=== PATIENT | female | born 1960 | race Caucasian/White ===

== ENCOUNTER 2023-07-05 07:11 | Observation (INO) | payer MEDICARE, MEDICAID ==
[2023-06-09 14:06] LABS: BASOPHILS % (AUTO) 0.5 % (0-1); EOSINOPHILS # (AUTO) 0.1 X10'3 (0-0.9); EOSINOPHILS % (AUTO) 1.3 % (0-6); LYMPHOCYTES # (AUTO) 1.4 X10'3 (1.1-4.8); LYMPHOCYTES % (AUTO) 26.5 % (21-51); MEAN CORPUSCULAR HEMOGLOBIN 29.4 PG (27.0-31.0); MEAN CORPUSCULAR HGB CONC 33.6 g/dL (33.0-36.5); MEAN CORPUSCULAR VOLUME 87.6 FL (78-98); MEAN PLATELET VOLUME 7.9 FL (7.4-10.4); MONOCYTES # (AUTO) 0.7 X10'3 (0-0.9); MONOCYTES % (AUTO) 12.9 % (2-12); NEUTROPHILS # (AUTO) 3.1 X10'3 (1.8-7.7); NEUTROPHILS % (AUTO) 58.8 % (42-75); PRE OP HEMATOCRIT 41.2 % (35.0-45.0); PRE OP HEMOGLOBIN 13.8 g/dL (12.0-16.0); PRE OP PLATELET COUNT 311 X10'3 (140-440); PRE OP WHITE BLOOD COUNT 5.2 10'3 (4.8-10.8)
[2023-06-09 14:14] LABS: ALBUMIN 4.1 G/DL (3.4-5.0); ALBUMIN/GLOBULIN RATIO 1.1 (1.1-1.5); ALKALINE PHOSPHATASE 24 IU/L (46-116); BLOOD UREA NITROGEN 19 MG/DL (7-18); BUN/CREATININE RATIO 13.7 (10.0-20.0); CALCIUM 9.5 MG/DL (8.5-10.1); CHLORIDE 106 MMOL/L (99-107); CREATININE 1.39 MG/DL (0.40-0.90); PRE OP ALT 30 U/L (30-65); PRE OP ANION GAP 9 (8-16); PRE OP AST 20 U/L (10-37); PRE OP BILIRUB, TOTAL 0.6 MG/DL (0.0-1.0); PRE OP GLUCOSE 97 MG/DL (70-104); PRE OP POTASSIUM 3.9 MMOL/L (3.4-5.1); PRE OP SODIUM 141 MMOL/L (135-145); TOTAL CARBON DIOXIDE 26.4 MMOL/L (24-32); TOTAL PROTEIN 7.8 G/DL (6.4-8.2); eGFR 38 ML/MIN
[2023-06-30 14:50] LABS: BASOPHILS % (AUTO) 0.4 % (0-1); EOSINOPHILS # (AUTO) 0.1 X10'3 (0-0.9); EOSINOPHILS % (AUTO) 0.9 % (0-6); LYMPHOCYTES # (AUTO) 1.1 X10'3 (1.1-4.8); LYMPHOCYTES % (AUTO) 16.6 % (21-51); MEAN CORPUSCULAR HGB CONC 34.5 g/dL (33.0-36.5); MEAN PLATELET VOLUME 7.7 FL (7.4-10.4); MONOCYTES # (AUTO) 0.6 X10'3 (0-0.9); MONOCYTES % (AUTO) 8.8 % (2-12); NEUTROPHILS # (AUTO) 4.8 X10'3 (1.8-7.7); NEUTROPHILS % (AUTO) 73.3 % (42-75); PRE OP HEMATOCRIT 40.9 % (35.0-45.0); PRE OP HEMOGLOBIN 14.1 g/dL (12.0-16.0); PRE OP PLATELET COUNT 344 X10'3 (140-440); PRE OP WHITE BLOOD COUNT 6.6 10'3 (4.8-10.8); RED CELL DISTRIBUTION WIDTH 14.1 % (11.5-14.5)
[2023-06-30 15:01] LABS: ALBUMIN/GLOBULIN RATIO 1.1 (1.1-1.5); ALKALINE PHOSPHATASE 26 IU/L (46-116); BLOOD UREA NITROGEN 21 MG/DL (7-18); BUN/CREATININE RATIO 15.9 (10.0-20.0); CALCIUM 9.4 MG/DL (8.5-10.1); CHLORIDE 103 MMOL/L (99-107); CREATININE 1.32 MG/DL (0.40-0.90); PRE OP ALT 34 U/L (30-65); PRE OP ANION GAP 9 (8-16); PRE OP AST 22 U/L (10-37); PRE OP BILIRUB, TOTAL 0.5 MG/DL (0.0-1.0); PRE OP GLUCOSE 151 MG/DL (70-104); PRE OP POTASSIUM 3.9 MMOL/L (3.4-5.1); PRE OP SODIUM 137 MMOL/L (135-145); TOTAL CARBON DIOXIDE 24.8 MMOL/L (24-32); TOTAL PROTEIN 7.8 G/DL (6.4-8.2); eGFR 41 ML/MIN
[2023-07-05] VITALS (28 sets, daily range): BP systolic 111–140; BP diastolic 66–92; PULSE 78–98; RESP 10–26; TEMP 96.4–97.7; O2SAT 91–100
[~2023-07-05] VITALS: Ht 157.5 cm; Wt 77.1 kg
[~2023-07-05 07:11] MED LIST: ATRNS BOTHNARES; AZEL137S4 BOTHNARES; CHOL200074 PO; DICY20TA2 PO; ELDERBERRY IMMUNE PO; FAMO20TA8 PO; FENO160T PO; MAGN400C PO; cefazolin 2gm/D5W 100mL 100 ML IV ONE; famotidine 20mg tablet PO ONE
[2023-07-05] MEDS: ringers solution, lacted 1,000 ML IV SCH ×2 (08:26→16:26)
[2023-07-05] MEDS ORDERED: scopolamine 1MG/72H patch 1 PATCH PATCH.TD.3 TD ONE (09:27)
[2023-07-05] MEDS ORDERED: LIDOcaine 1% (10mg/ml)w/preservative inj. 20ml MDV ONE (09:30)
[2023-07-05] MEDS ORDERED: BUPIVAcaine/PF 2.5 mg/ml (0.25%) 30ml vial ONE (09:30)
[2023-07-05] MEDS ORDERED: midazolam 1 mg/ML 2ml injection ONE (09:31)
[2023-07-05] MEDS ORDERED: fentaNYL/PF 50MCG/1 ML 2ML syringe ONE ×2 (09:31→12:25)
[2023-07-05] MEDS ORDERED: propofol inj 20 ML IV ONE (09:36)
[2023-07-05] MEDS ORDERED: rocuronium 10mg/ml inj IV ONE ×2 (09:36→09:40)
[2023-07-05] MEDS ORDERED: LIDOcaine 2% (20mg/ml) 5ml vial ONE (09:36)
[2023-07-05] MEDS ORDERED: dexamethasone sod phosphate 4mg/ml inj. ONE (09:36)
[2023-07-05] MEDS ORDERED: sevoflurane 250ml liquid IH ONE (09:40)
[2023-07-05] MEDS ORDERED: morphine 2 MG/ML inj. syringe IV PRN (09:40)
[2023-07-05] MEDS ORDERED: glycopyrrolate 0.2mg/ml inj ONE (09:40)
[2023-07-05] MEDS ORDERED: ondansetron/PF 4mg/2ml inj ONE (09:40)
[2023-07-05] MEDS ORDERED: meperidine/PF 25mg/ml syringe IV PRN ×3 (09:40)
[2023-07-05] MEDS ORDERED: ondansetron/PF 4mg/2ml inj IV PRN (09:40)
[2023-07-05] MEDS ORDERED: ringers solution, lacted 1,000 ML IV SCH (09:40)
[2023-07-05] MEDS ORDERED: proCHLORperazine 10 MG/2 ml inj IV PRN (09:40)
[2023-07-05] MEDS ORDERED: neostigmine methylsulfate 1 MG/ML 10ml vial ONE (09:40)
[2023-07-05] MEDS ORDERED: morphine 4 MG/ML inj SYRINge IV PRN (09:40)
[2023-07-05] MEDS ORDERED: phenylephrine 10mg/ml inj. -priapism dosing ONE (10:35)
[2023-07-05] MEDS ORDERED: ePHEDrine 50MG/ML INJ. ONE (11:37)
[2023-07-05] MEDS ORDERED: acetaminophen 1,000mg/100ml IV 100 ML IV ONE (12:04)
[2023-07-05] MEDS ORDERED: sugammadex 200mg/2ml injection IV ONE (12:06)
[2023-07-05] MEDS ORDERED: meperidine/PF 25mg/ml syringe ONE (12:10)
--- NOTE | 2023-07-05 12:28 | NUR ---
Received from OR via HOSPITAL BED TO RR 7, accompanied by Anesthesiologist MIMI and report given by Anesthesiologist. PT PRESENTS ON 6L VIA MASK, VSS. NO S/S OF DISTRESS. LR RUNNING THRU PIV. 4 ABD LAP SITES ARE CDI WITH DERMABOND. PALPABLE STRONG PULSES RADIALS AND PEDALS.
[2023-07-05] MEDS ORDERED: naloxone 0.4 mg/ml inj IV PRN (12:40)
[2023-07-05] MEDS ORDERED: IPRATROPIUM Bromide 0.06% Nas 1 SPRAY BOTTLE NS PRN (12:50)
[2023-07-05] MEDS: HYDROmorph/NS 0.2 mg/ml PCA 100 ML IV SCH ×5 (13:53→23:00)
--- NOTE | 2023-07-05 15:44 | NUR ---
Patient in room PAS IN 901. I have received report from ewa posada and had the opportunity to ask questions and assume patient care.
--- NOTE | 2023-07-05 15:48 | NUR ---
PT STABLE FOR TRANSFER TO ROOM 4013A PER MD ORDERS. REPORT CALLED TO PRIMARY NURSE AVINASH ALL QUESTIONS, COMMENTS, AND CONCERNS WERE ANSWERED AT THIS TIME. PATIENTS AT BEDSIDE. BILATERAL PEDAL PULSES & RADIAL PULSES ARE STRONG AND PALPABLE. DERMABOND TO 4 ABD LAP SITES REMAINS CDI. SCOPOLAMINE PATCH TO LEFT (BEHIND THE EAR), PRIMARY NURSE AWARE. PATIENT HOOKED UP TO POST OP VITALS, CALL LIGHT WITHIN REACH, BLL. PRIMARY NURSE AWARE OF PATIENT TRANSFER.
--- NOTE | 2023-07-05 16:00 | NUR ---
PT BECAME NAUSEOUS WHEN SHE ARRIVED UP TO ROOM 4013A. HAD PRIMARY NURSE PULL RECOVERY ZOFRAN FROM ME TO ADMINISTER I DID NOT HAVE ACCESS TO PULL MEDS ON THE ORTHO FLOOR.
[2023-07-05] MEDS: normal saline 1000ml 1,000 ML IV SCH (17:27)
--- NOTE | 2023-07-05 18:54 | NUR ---
Problems reprioritized. Patient report given, questions answered & plan of care reviewed with karel posada.
[2023-07-05] MEDS: azelastine Nasal Spray bottle NS SCH (20:45)
[2023-07-05] MEDS: ondansetron/PF 4mg/2ml inj IV PRN (20:54)
[2023-07-06] MEDS: HYDROmorph/NS 0.2 mg/ml PCA 100 ML IV SCH ×3 (01:00→05:00)
[2023-07-06] MEDS: normal saline 1000ml 1,000 ML IV SCH (01:29)
[2023-07-06 02:00] VITALS: BP 117/73; PULSE 100; RESP 18; TEMP 98; O2SAT 99
[2023-07-06] MEDS: ondansetron/PF 4mg/2ml inj IV PRN (05:19)
[2023-07-06 06:00] VITALS: BP 110/66; PULSE 83; RESP 16; TEMP 97.8; O2SAT 98
--- NOTE | 2023-07-06 06:34 | NUR ---
Problems reprioritized. Patient report given, questions answered & plan of care reviewed with ALDA Rosario.
--- NOTE | 2023-07-06 06:41 | NUR ---
Patient in room ORTHO 4013. I have received report from OBDULIO LIZAMA and had the opportunity to ask questions and assume patient care.
[2023-07-06 06:45] LABS: ALBUMIN 3.2 G/DL (3.4-5.0); ANION GAP 7 (8-16); BLOOD UREA NITROGEN 15 MG/DL (7-18); CALCIUM 8.5 MG/DL (8.5-10.1); CHLORIDE 104 MMOL/L (99-107); CREATININE 1.07 MG/DL (0.40-0.90); GLUCOSE 181 MG/DL (70-104); POTASSIUM 4.4 MMOL/L (3.5-5.1); SODIUM 137 MMOL/L (135-145); TOTAL CARBON DIOXIDE 25.9 MMOL/L (24-32); eCRCL 43 ML/MIN; eGFR 52 ML/MIN
[2023-07-06 08:00] VITALS: BP 142/85; PULSE 75
[2023-07-06] MEDS ORDERED: enoxaparin 40mg/0.4ml syringe SQ SCH (08:00)
[2023-07-06] MEDS ORDERED: fenofibrate 145mg tablet PO SCH (08:00)
[2023-07-06] MEDS ORDERED: PER5325T PO (08:59)
--- NOTE | 2023-07-06 09:07 | NUR ---
per pharmacy needed to put a note in for settings check... pt cadd dc before able to put in cadd setting check numbers. last numbers at 0700 were VTBI 78, 2/2 attempts, 0.4 mg given. charge nurse notified.
[2023-07-06] MEDS ORDERED: PCA WASTE DOCUMENTATION 1 MG ML MC SCH (09:10)
[2023-07-06 10:00] VITALS: BP 115/63; PULSE 88; RESP 16; TEMP 98; O2SAT 99
[2023-07-06] MEDS: azelastine Nasal Spray bottle NS SCH (10:05)
--- NOTE | 2023-07-06 12:09 | NUR ---
Nutrition consult "Post-noah diet et": Pt s/p noah fundoplication this admit per EMR. Pt seen by RD at bedside for written/verbal post-noah diet ed w/ RD contact information provided. RD encouraged pt to contact dietitian's office if further nutrition questions/concerns. Dietary notified not to send straws w/ meals. Addendum: 07/06/23 at [address] Amended: Links added.
[2023-07-06] MEDS: oxyCODONE/APAP 5-325mg tablet PO PRN ×2 (12:36→16:55)
[2023-07-06 13:53] VITALS: RESP 16; O2SAT 96
[2023-07-06] MEDS ORDERED: guaiFENesin/DM 10ml UD oral syrup PO PRN (16:00)
--- NOTE | 2023-07-06 16:00 | NUR ---
spoke with surgeon he put in the dc and said when the pt is ready to go she can. she wanted to see how she felt a little later this was at about 1400. later on pt expressed concern for a bulge on her left side. i then contacted surgeon to let him know he ensured this was normal and the pt will follow up with him. i let the pt know this. the pt had walked about 300ft one time and 100 another time. no gas at this time or bm, and hypoactive bowels, surgeon is aware of this and stated pt can be dc home.
--- NOTE | 2023-07-06 16:19 | NUR ---
physical assessment charting reviewed with Student RN
[2023-07-06 16:55] VITALS: RESP 15
--- NOTE | 2023-07-06 17:38 | NUR ---
pt stable for dc, iv dc cannula is intact, all dc info gone over and signed, discussed/provided education with pt about the scopolamine patch on the back of the ear, pt had no meds in the pharmacy, pt took all her belongings, she was wheeled down to the [employer]by and left in a private vehicle with her significant other.
== END 2023-07-06 17:30 | disposition home or self-care (01) ==
LOC: PAS 07:11 → PAS IN 12:45 → ORTHO 4S 16:32
PROVIDERS: ADMIT Surgery; ATTEND Surgery
DX: K44.9 Diaphragmatic hernia without obstruction or gangrene (principal); K21.9 Gastro-esophageal reflux disease without esophagitis; N18.30 Chronic kidney disease, stage 3 unspecified; E78.00 Pure hypercholesterolemia, unspecified; Z87.891 Personal history of nicotine dependence; Z79.899 Other long term (current) drug therapy
CPT/HCPCS: 36415; 43282; 71045; 80048; 80053; 82948; 85025; 87081; 93005; 96365; 96366; 96375; 96376; C1781; G0378; J0131; J0690; J1100; J1170; J2175; J2250; J2370; J2405; J2704; J2710; J3010; J3490; J7030; J7120; A4615; A4618

== ENCOUNTER 2023-07-20 19:21 | Emergency (ER) | payer MEDICARE, MEDICAID ==
[~2023-07-20] VITALS: Ht 157.5 cm; Wt 72.8 kg
[~2023-07-20 19:21] MED LIST changes: +PER5325T PO; -cefazolin 2gm/D5W 100mL 100 ML IV ONE; -famotidine 20mg tablet PO ONE
[2023-07-20 20:50] LABS: HEMOGLOBIN 14.1 g/dl (12.0-16.0); MONOCYTES # (AUTO) 0.4 X10'3 (0-0.9)
[2023-07-20 20:52] LABS: BASOPHILS % (AUTO) 0.2 % (0-1); EOSINOPHILS % (AUTO) 0.3 % (0-6); HEMATOCRIT 41.4 % (35.0-45.0); LYMPHOCYTES # (AUTO) 1.4 X10'3 (1.1-4.8); MEAN CORPUSCULAR HGB CONC 34.2 g/dL (33.0-36.5); MEAN CORPUSCULAR VOLUME 87.7 FL (78-98); MEAN PLATELET VOLUME 7.7 FL (7.4-10.4); MONOCYTES % (AUTO) 6.2 % (2-12); NEUTROPHILS # (AUTO) 5.4 X10'3 (1.8-7.7); NEUTROPHILS % (AUTO) 74.3 % (42-75); PLATELET COUNT 440 X10'3 (140-440); RED BLOOD COUNT 4.72 X10'6 (4.20-5.60); RED CELL DISTRIBUTION WIDTH 13.7 % (11.5-14.5); WHITE BLOOD COUNT 7.2 X10'3 (4.5-11.0)
[2023-07-20 20:58] LABS: ALANINE AMINOTRANSFERASE 31 U/L (12-78); ALBUMIN 4.1 G/DL (3.4-5.0); ALBUMIN/GLOBULIN RATIO 1.1 (1.1-1.5); ALKALINE PHOSPHATASE 29 IU/L (46-116); ANION GAP 12 (8-16); ASPARTATE AMINO TRANSFERASE 17 U/L (10-37); BILIRUBIN,TOTAL 0.9 MG/DL (0.1-1.0); BLOOD UREA NITROGEN 12 MG/DL (7-18); BUN/CREATININE RATIO 9.9 (10.0-20.0); CALCIUM 9.5 MG/DL (8.5-10.1); CHLORIDE 102 MMOL/L (99-107); CREATININE 1.21 MG/DL (0.40-0.90); GLUCOSE 178 MG/DL (70-104); LIPASE 111 U/L (16-77); POTASSIUM 3.6 MMOL/L (3.5-5.1); SODIUM 138 MMOL/L (135-145); eCRCL 38 ML/MIN; eGFR 45 ML/MIN
[2023-07-20 21:22] VITALS: BP 136/94; PULSE 73; RESP 18; TEMP 97.3; O2SAT 99
[2023-07-21] MEDS ORDERED: BISA10SU11 RC (16:54)
[2023-07-21] MEDS ORDERED: DOCU-148 PO (16:54)
[2023-07-21] MEDS ORDERED: ONDA4TAB12 PO (16:54)
[2023-07-21] MEDS ORDERED: POLY17PO10 PO (16:54)
[2023-07-22] MEDS ORDERED: POTA-207 PO (14:14)
[2023-07-22] MEDS ORDERED: PROC5TAB56 PO (15:54)
== END 2023-07-21 01:15 | disposition left against medical advice (07) ==
LOC: ER 19:22
DX: R10.9 Unspecified abdominal pain (principal); Z53.21 Procedure and treatment not carried out due to patient leaving prior to being seen by health care provider; R11.2 Nausea with vomiting, unspecified
CPT/HCPCS: 36415; 80053; 83690; 85025; 99281

== ENCOUNTER 2023-07-21 08:57 | Emergency (ER) | payer MEDICARE, MEDICAID ==
[~2023-07-21] VITALS: Ht 157.5 cm; Wt 72.4 kg
[2023-07-21 10:12] VITALS: TEMP 98.4
[2023-07-21 10:50] LABS: BILIRUBIN,URINE NEGATIVE (Neg); CLARITY,URINE CLEAR (Clear); COLOR,URINE YELLOW (Yellow); GLUCOSE, URINE NEGATIVE (Neg); KETONES,URINE TRACE mg/dl (Neg); LEUKOCYTE ESTERASE ,URINE TRACE (Neg); NITRITES, URINE NEGATIVE (Neg); OCCULT BLOOD,URINE NEGATIVE (Neg); PH,URINE 6.5 (4.8-8.0); PROTEIN,URINE NEGATIVE (Neg)
[2023-07-21 10:58] LABS: UA COLLECTION TYPE CLN CATCH MIDSTREAM
[2023-07-21 11:01] LABS: BACTERIA,URINE 1+ /HPF (Neg); MUCUS STRANDS FEW /LPF (Neg); RBC,URINE NONE SEEN /HPF (0-2); SQUAMOUS EPITHELIAL CELL,UR MANY /LPF (FEW)
[2023-07-21 12:25] LABS: BASOPHILS % (AUTO) 0.2 % (0-1); EOSINOPHILS % (AUTO) 0 % (0-6); HEMATOCRIT 38.9 % (35.0-45.0); HEMOGLOBIN 13.4 g/dl (12.0-16.0); LYMPHOCYTES # (AUTO) 0.7 X10'3 (1.1-4.8); LYMPHOCYTES % (AUTO) 10.4 % (21-51); MEAN CORPUSCULAR HEMOGLOBIN 30.1 PG (27.0-31.0); MEAN CORPUSCULAR HGB CONC 34.5 g/dL (33.0-36.5); MEAN CORPUSCULAR VOLUME 87.2 FL (78-98); MEAN PLATELET VOLUME 7.7 FL (7.4-10.4); MONOCYTES # (AUTO) 0.4 X10'3 (0-0.9); MONOCYTES % (AUTO) 5.8 % (2-12); NEUTROPHILS # (AUTO) 5.5 X10'3 (1.8-7.7); NEUTROPHILS % (AUTO) 83.6 % (42-75); PLATELET COUNT 384 X10'3 (140-440); RED BLOOD COUNT 4.46 X10'6 (4.20-5.60); RED CELL DISTRIBUTION WIDTH 13.7 % (11.5-14.5); WHITE BLOOD COUNT 6.6 X10'3 (4.5-11.0)
[2023-07-21 12:53] LABS: ALANINE AMINOTRANSFERASE 21 U/L (12-78); ALBUMIN 3.8 G/DL (3.4-5.0); ANION GAP 11 (8-16); ASPARTATE AMINO TRANSFERASE 14 U/L (10-37); BLOOD UREA NITROGEN 9 MG/DL (7-18); BUN/CREATININE RATIO 8.9 (10.0-20.0); CALCIUM 9.6 MG/DL (8.5-10.1); CHLORIDE 100 MMOL/L (99-107); CREATININE 1.01 MG/DL (0.40-0.90); GLUCOSE 147 MG/DL (70-104); POTASSIUM 3.6 MMOL/L (3.5-5.1); SODIUM 135 MMOL/L (135-145); TOTAL CARBON DIOXIDE 24.2 MMOL/L (24-32); TOTAL PROTEIN 7.8 G/DL (6.4-8.2); eCRCL 45 ML/MIN; eGFR 55 ML/MIN
[2023-07-21 12:54] LABS: ALKALINE PHOSPHATASE 26 IU/L (46-116); LIPASE 77 U/L (16-77)
[2023-07-21] MEDS ORDERED: ondansetron/PF 4mg/2ml inj IV ONE (15:45)
[2023-07-21] MEDS ORDERED: normal saline 1000ML IV soln IVB ONE ×2 (15:45→17:00)
[2023-07-21] MEDS ORDERED: BISA10SU11 RC (16:54)
[2023-07-21] MEDS ORDERED: ONDA4TAB12 PO (16:54)
[2023-07-21] MEDS ORDERED: POLY17PO10 PO (16:54)
[2023-07-21] MEDS ORDERED: DOCU-148 PO (16:54)
[2023-07-21] MEDS ORDERED: magnesium hydroxide 30ml (MOM) UD suspension PO ONE (17:00)
[2023-07-21 17:49] VITALS: BP 118/89; PULSE 70; RESP 18; O2SAT 99
[2023-07-22] MEDS ORDERED: POTA-207 PO (14:14)
[2023-07-22] MEDS ORDERED: PROC5TAB56 PO (15:54)
== END 2023-07-21 18:21 | disposition home or self-care (01) ==
LOC: ER 08:57
DX: R11.2 Nausea with vomiting, unspecified (principal); R19.7 Diarrhea, unspecified; R10.10 Upper abdominal pain, unspecified; E78.00 Pure hypercholesterolemia, unspecified; K21.9 Gastro-esophageal reflux disease without esophagitis; Z79.899 Other long term (current) drug therapy
CPT/HCPCS: 36415; 80053; 81001; 83690; 85025; 96361; 96374; 99285; J2405; J7030

== ENCOUNTER 2023-07-22 12:11 | Emergency (ER) | payer MEDICARE, MEDICAID ==
[~2023-07-22] VITALS: Ht 157.5 cm; Wt 72.8 kg
[~2023-07-22 12:11] MED LIST changes: +BISA10SU11 RC; +DOCU-148 PO; +ONDA4TAB12 PO; +POLY17PO10 PO
[2023-07-22 12:36] LABS: BILIRUBIN,URINE NEGATIVE (Neg); CLARITY,URINE CLEAR (Clear); COLOR,URINE YELLOW (Yellow); GLUCOSE, URINE NEGATIVE (Neg); KETONES,URINE 15 mg/dl (Neg); LEUKOCYTE ESTERASE ,URINE TRACE (Neg); NITRITES, URINE NEGATIVE (Neg); OCCULT BLOOD,URINE NEGATIVE (Neg); PH,URINE 6.5 (4.8-8.0); PROTEIN,URINE NEGATIVE (Neg); UROBILINOGEN,URINE 0.2 E.U/dL (0.2-1.0)
[2023-07-22 12:42] LABS: BACTERIA,URINE NONE SEEN /HPF (Neg); MUCUS STRANDS FEW /LPF (Neg); RBC,URINE 0-2 /HPF (0-2); SQUAMOUS EPITHELIAL CELL,UR NONE SEEN /LPF (FEW); UA COLLECTION TYPE NON-SPECIFIED; WBC,URINE NONE SEEN /HPF (0-4)
[2023-07-22] MEDS ORDERED: diphenhydrAMINE 50 mg/ml inj IV ONE (12:50)
[2023-07-22] MEDS ORDERED: metoclopramide 5 mg/ml inj IV ONE (12:50)
[2023-07-22] MEDS ORDERED: normal saline 1000ML IV soln IVB ONE (12:50)
[2023-07-22 12:58] LABS: BASOPHILS % (AUTO) 0.4 % (0-1); EOSINOPHILS % (AUTO) 0.1 % (0-6); HEMATOCRIT 42.5 % (35.0-45.0); HEMOGLOBIN 14.4 g/dl (12.0-16.0); LYMPHOCYTES % (AUTO) 10.4 % (21-51); MEAN CORPUSCULAR HEMOGLOBIN 29.9 PG (27.0-31.0); MEAN CORPUSCULAR VOLUME 87.9 FL (78-98); MEAN PLATELET VOLUME 7.8 FL (7.4-10.4); MONOCYTES # (AUTO) 0.5 X10'3 (0-0.9); MONOCYTES % (AUTO) 5.7 % (2-12); NEUTROPHILS # (AUTO) 7.9 X10'3 (1.8-7.7); NEUTROPHILS % (AUTO) 83.4 % (42-75); PLATELET COUNT 488 X10'3 (140-440); RED BLOOD COUNT 4.83 X10'6 (4.20-5.60); RED CELL DISTRIBUTION WIDTH 13.8 % (11.5-14.5); WHITE BLOOD COUNT 9.5 X10'3 (4.5-11.0)
[2023-07-22 13:06] LABS: ALANINE AMINOTRANSFERASE 23 U/L (12-78); ALBUMIN 4.2 G/DL (3.4-5.0); ALBUMIN/GLOBULIN RATIO 1.2 (1.1-1.5); ALKALINE PHOSPHATASE 26 IU/L (46-116); ANION GAP 13 (8-16); ASPARTATE AMINO TRANSFERASE 21 U/L (10-37); BILIRUBIN,TOTAL 1.1 MG/DL (0.1-1.0); BLOOD UREA NITROGEN 9 MG/DL (7-18); BUN/CREATININE RATIO 7.4 (10.0-20.0); CALCIUM 9.4 MG/DL (8.5-10.1); CHLORIDE 97 MMOL/L (99-107); CREATININE 1.21 MG/DL (0.40-0.90); GLUCOSE 153 MG/DL (70-104); LIPASE 43 U/L (16-77); POTASSIUM 3.1 MMOL/L (3.5-5.1); SODIUM 132 MMOL/L (135-145); TOTAL CARBON DIOXIDE 22.3 MMOL/L (24-32); TOTAL PROTEIN 7.8 G/DL (6.4-8.2); eCRCL 38 ML/MIN; eGFR 45 ML/MIN
[2023-07-22] MEDS ORDERED: potassium Cl 40MEQ/1/2NS 520ml 520 ML IV ONE (14:05)
[2023-07-22] MEDS ORDERED: POTASSIUM BICARB 20meq eff tab 20 MEQ TABLET.EFF PO STA (14:13)
[2023-07-22] MEDS ORDERED: POTA-207 PO (14:14)
[2023-07-22] MEDS ORDERED: proCHLORperazine 10 MG/2 ml inj IV ONE (15:00)
[2023-07-22] MEDS ORDERED: PROC5TAB56 PO (15:54)
[2023-07-22 16:01] VITALS: BP 149/80; PULSE 67; RESP 15; TEMP 98.7; O2SAT 98
== END 2023-07-22 16:02 | disposition home or self-care (01) ==
LOC: ER 12:12
DX: R11.2 Nausea with vomiting, unspecified (principal); E87.6 Hypokalemia; G89.18 Other acute postprocedural pain; E78.00 Pure hypercholesterolemia, unspecified; K21.9 Gastro-esophageal reflux disease without esophagitis; Z79.899 Other long term (current) drug therapy
CPT/HCPCS: 36415; 74176; 80053; 81001; 83690; 84145; 85025; 87088; 96374; 96375; 99285; J1200; J2765; J7030

== ENCOUNTER 2024-05-17 12:15 | Outpatient (CLI) | payer MEDICARE, MEDICAID ==
[~2024-05-17 12:15] MED LIST changes: +ONDA-243 PO; -ONDA4TAB12 PO; -POLY17PO10 PO; +PROC5TAB56 PO
== END 2024-05-17 23:59 | disposition home or self-care (01) ==
LOC: MRI 12:15
PROVIDERS: ATTEND Pediatrics Sports Medicine
DX: M17.12 Unilateral primary osteoarthritis, left knee (principal); M71.22 Synovial cyst of popliteal space [Baker], left knee; M25.562 Pain in left knee
CPT/HCPCS: 73721